=== PATIENT | female | born 1960 | race Caucasian/White ===

== ENCOUNTER 2024-03-28 10:27 | Inpatient (IN) | payer OTHER ==
[~2024-03-28] VITALS: Ht 165.1 cm; Wt 38.6 kg
[~2024-03-28 10:27] MED LIST: FLUC150T PO
[2024-03-28 11:52] LABS: BASOPHILS % (AUTO) 0.1 % (0-1); EOSINOPHILS % (AUTO) 0 % (0-6); HEMATOCRIT 48.9 % (35.0-45.0); HEMOGLOBIN 16.2 g/dl (12.0-16.0); LYMPHOCYTES # (AUTO) 0.8 X10'3 (1.1-4.8); LYMPHOCYTES % (AUTO) 3.7 % (21-51); MEAN CORPUSCULAR HEMOGLOBIN 29.1 PG (27.0-31.0); MEAN CORPUSCULAR HGB CONC 33.2 g/dL (33.0-36.5); MEAN CORPUSCULAR VOLUME 87.9 FL (78-98); MEAN PLATELET VOLUME 8.5 FL (7.4-10.4); MONOCYTES # (AUTO) 1.1 X10'3 (0-0.9); MONOCYTES % (AUTO) 5.2 % (2-12); NEUTROPHILS # (AUTO) 19.9 X10'3 (1.8-7.7); PLATELET COUNT 387 X10'3 (140-440); RED BLOOD COUNT 5.56 X10'6 (4.20-5.60); RED CELL DISTRIBUTION WIDTH 13.8 % (11.5-14.5); WHITE BLOOD COUNT 21.9 X10'3 (4.5-11.0)
[2024-03-28 12:13] LABS: ANION GAP 28 (8-16); BLOOD UREA NITROGEN 29 MG/DL (7-18); BUN/CREATININE RATIO 16.5 (10.0-20.0); CALCIUM 10.2 MG/DL (8.5-10.1); CHLORIDE 91 MMOL/L (99-107); CREATININE 1.76 MG/DL (0.40-0.90); POTASSIUM 4.8 MMOL/L (3.5-5.1); PRO BRAIN NATRIURETIC PEPTIDE 254 PG/ML (0-125); SODIUM 131 MMOL/L (135-145); eCRCL 30 ML/MIN; eGFR 29 ML/MIN
[2024-03-28 12:16] LABS: GLUCOSE 457 MG/DL (70-104)
[2024-03-28 12:17] LABS: TOTAL CARBON DIOXIDE 12.2 MMOL/L (24-32)
[2024-03-28] MEDS: magnesium 2GM in 50ml NS 50 ML IV ONE (12:35)
[2024-03-28] MEDS ORDERED: normal saline 1000ML IV soln IVB ONE (12:35)
[2024-03-28 13:19] LABS: MAGNESIUM 2.6 MG/DL (1.5-2.4)
[2024-03-28] MEDS: ondansetron/PF 4mg/2ml inj IV PRN (13:34)
[2024-03-28] MEDS: morphine 4 MG/ML inj SYRINge IV ONE (13:35)
[2024-03-28 13:40] LABS: ACETONE LARGE (NEGATIVE)
[2024-03-28] MEDS: Insulin Reg/NS 100units/100mL 100 ML IV SCH (13:52)
[2024-03-28] MEDS: ringers solution, lactated 1000ml IV soln IV ONE (13:52)
[2024-03-28 14:01] LABS: BILIRUBIN,URINE MODERATE (Neg); CLARITY,URINE SLIGHTLY CLOUDY (Clear); COLOR,URINE STRAW (Yellow); GLUCOSE, URINE >=1000 mg/dl (Neg); KETONES,URINE >=80 mg/dl (Neg); LEUKOCYTE ESTERASE ,URINE NEGATIVE (Neg); NITRITES, URINE NEGATIVE (Neg); OCCULT BLOOD,URINE MODERATE (Neg); PH,URINE 5.5 (4.8-8.0); PROTEIN,URINE TRACE mg/dl (Neg); UROBILINOGEN,URINE 0.2 E.U/dL (0.2-1.0)
[2024-03-28 14:06] LABS: UA COLLECTION TYPE FOLEY CATH
[2024-03-28 14:10] LABS: SQUAMOUS EPITHELIAL CELL,UR MODERATE /LPF (FEW)
[2024-03-28 14:11] LABS: WBC,URINE 30-50 /HPF (0-4)
[2024-03-28 14:12] LABS: BACTERIA,URINE 2+ /HPF (Neg); CAL OXALATE CRYSTALS FEW /HPF (NEGATIVE); RBC,URINE 0-2 /HPF (0-2)
[2024-03-28 14:20] LABS: ABG BASE EXCESS -14.8 mmol/L (-2.0-2.0); ABG HCO3 9.5 mmol/L (22.0-26.0); ABG OXYGEN SATURATION 97.6 % (94-97); ABG PCO2 (T) 20.3 mmHg (32.0-45.0); ABG PH (T) 7.285 (7.350-7.450); ABG PO2 (T) 101.6 mmHg (75.0-100.0); ALLEN'S TEST POSITIVE; FCOHb 0.1 % (0.0-3.9); FHHb 2.4 % (0.0-5.0); FMetHb 0.4 % (0.0-1.5); FO2Hb 97.1 % (94-97); MODE ROOM AIR; PATIENT TEMPERATURE 36.8; TOTAL HEMOGLOBIN 15.6 G/dl (12.0-16.0)
[2024-03-28] MEDS: morphine 2 MG/ML inj. syringe IV PRN (14:33)
[2024-03-28] MEDS: normal saline 1000ml 1,000 ML IV SCH ×3 (14:35→15:35)
[2024-03-28] MEDS ORDERED: insulin regular, human U-100 3ml vial - multi-dose IV PRN ×2 (14:35→14:55)
[2024-03-28] MEDS ORDERED: sodium phosphate inj. 30 MMOL in dextrose 5%-water 250 ML IV PRN (14:35)
[2024-03-28] MEDS ORDERED: potassium Cl 20 mEq SR tablet PO PRN ×2 (14:35)
[2024-03-28] MEDS ORDERED: sodium bicarbonate (8.4%) inj. 100 MEQ in dextrose 5% water 500ml 500 ML IV PRN (14:35)
[2024-03-28] MEDS ORDERED: Insulin Reg/NS 100units/100mL 100 ML IV SCH (14:35)
[2024-03-28] MEDS: PERFLUTREN PROTEIN-A MICROSPHR (Optison) 0.22 MG/ML 3ML VIAL IV ONE (14:35)
[2024-03-28] MEDS ORDERED: potassium Cl 40MEQ/1/2NS 520ml 520 ML IV PRN (14:35)
[2024-03-28] MEDS ORDERED: potassium CL 20mEq in D5-1/2NS 1,000 ML IV PRN (14:35)
[2024-03-28] MEDS ORDERED: Neutra Phos packet PO PRN (14:35)
[2024-03-28] MEDS ORDERED: sodium phosphate inj. 15 MMOL in dextrose 5%-water 250 ML IV PRN (14:35)
[2024-03-28] MEDS ORDERED: sodium bicarbonate (8.4%) inj. 50 MEQ in dextrose 5% water 500ml 250 ML IV PRN (14:35)
[2024-03-28 15:24] LABS: BASOPHILS % (AUTO) 0.2 % (0-1); EOSINOPHILS % (AUTO) 0 % (0-6); HEMATOCRIT 45.1 % (35.0-45.0); HEMOGLOBIN 14.8 g/dl (12.0-16.0); LYMPHOCYTES # (AUTO) 0.9 X10'3 (1.1-4.8); MEAN CORPUSCULAR HEMOGLOBIN 28.8 PG (27.0-31.0); MEAN CORPUSCULAR HGB CONC 32.9 g/dL (33.0-36.5); MEAN CORPUSCULAR VOLUME 87.4 FL (78-98); MEAN PLATELET VOLUME 8.2 FL (7.4-10.4); MONOCYTES # (AUTO) 0.7 X10'3 (0-0.9); MONOCYTES % (AUTO) 3.2 % (2-12); NEUTROPHILS # (AUTO) 19.8 X10'3 (1.8-7.7); NEUTROPHILS % (AUTO) 92.6 % (42-75); PLATELET COUNT 372 X10'3 (140-440); RED BLOOD COUNT 5.15 X10'6 (4.20-5.60); RED CELL DISTRIBUTION WIDTH 13.5 % (11.5-14.5); WHITE BLOOD COUNT 21.4 X10'3 (4.5-11.0)
[2024-03-28 15:34] LABS: ALBUMIN 2.7 G/DL (3.4-5.0); ANION GAP 22 (8-16); BLOOD UREA NITROGEN 30 MG/DL (7-18); CALCIUM 9.7 MG/DL (8.5-10.1); CHLORIDE 96 MMOL/L (99-107); CREATININE 1.67 MG/DL (0.40-0.90); GLUCOSE 370 MG/DL (70-104); PHOSPHORUS 3.1 MG/DL (2.3-4.5); POTASSIUM 4.1 MMOL/L (3.5-5.1); SODIUM 133 MMOL/L (135-145); TOTAL CARBON DIOXIDE 15.5 MMOL/L (24-32); eCRCL 32 ML/MIN; eGFR 31 ML/MIN
[2024-03-28] MEDS: CALCIUM GLUC 1gm/50ml NACL,iso 50 ML IV ONE ×2 (15:35→16:25)
[2024-03-28 16:51] LABS: ALBUMIN 2.4 G/DL (3.4-5.0); ANION GAP 16 (8-16); BLOOD UREA NITROGEN 27 MG/DL (7-18); BUN/CREATININE RATIO 18.2 (10.0-20.0); CHLORIDE 100 MMOL/L (99-107); CREATININE 1.48 MG/DL (0.40-0.90); GLUCOSE 261 MG/DL (70-104); POTASSIUM 3.8 MMOL/L (3.5-5.1); SODIUM 136 MMOL/L (135-145); TOTAL CARBON DIOXIDE 20.1 MMOL/L (24-32); eCRCL 36 ML/MIN; eGFR 36 ML/MIN
[2024-03-28] MEDS: potassium CL 20mEq in D5-1/2NS 1,000 ML IV PRN (17:30)
[2024-03-28 18:58] LABS: ANION GAP 15 (8-16); CHLORIDE 103 MMOL/L (99-107); POTASSIUM 4.4 MMOL/L (3.5-5.1); SODIUM 137 MMOL/L (135-145); TOTAL CARBON DIOXIDE 19.1 MMOL/L (24-32)
[2024-03-28 19:12] LABS: ALBUMIN 2.7 G/DL (3.4-5.0); BLOOD UREA NITROGEN 25 MG/DL (7-18); BUN/CREATININE RATIO 16.7 (10.0-20.0); CALCIUM 9.9 MG/DL (8.5-10.1); GLUCOSE 208 MG/DL (70-104); MAGNESIUM 2.1 MG/DL (1.5-2.4); eCRCL 35 ML/MIN; eGFR 35 ML/MIN
[2024-03-28] MEDS: potassium phosphate inj 15 MMOL in normal saline 250ml IV soln 250 ML IV ONE (19:12)
[2024-03-28] MEDS: HYDROcodone/acetaminophen 5mg/325mg tablet PO PRN (19:45)
[2024-03-28] MEDS: K and/or MAG REPLACEMENT MC SCH (20:00)
[2024-03-28 20:04] LABS: ALKALINE PHOSPHATASE 308 IU/L (46-116)
[2024-03-28 21:05] VITALS: BP 102/66; PULSE 110; RESP 18; TEMP 97.7; O2SAT 94
[2024-03-28] MEDS: heparin, porcine 5000 units/ml vial SQ SCH (21:56)
[2024-03-29] VITALS (14 sets, daily range): BP systolic 96–121; BP diastolic 57–71; PULSE 76–103; RESP 12–19; TEMP 96.9–98.4; O2SAT 90–97
[2024-03-29 05:47] LABS: BASOPHILS # (AUTO) 0.1 X10'3 (0-0.2); BASOPHILS % (AUTO) 0.7 % (0-1); EOSINOPHILS % (AUTO) 0.2 % (0-6); HEMATOCRIT 40.9 % (35.0-45.0); HEMOGLOBIN 13.6 g/dl (12.0-16.0); LYMPHOCYTES % (AUTO) 5.8 % (21-51); MEAN CORPUSCULAR HEMOGLOBIN 28.4 PG (27.0-31.0); MEAN CORPUSCULAR HGB CONC 33.2 g/dL (33.0-36.5); MEAN CORPUSCULAR VOLUME 85.6 FL (78-98); MEAN PLATELET VOLUME 8.2 FL (7.4-10.4); MONOCYTES # (AUTO) 1.3 X10'3 (0-0.9); MONOCYTES % (AUTO) 7.6 % (2-12); NEUTROPHILS # (AUTO) 14.6 X10'3 (1.8-7.7); NEUTROPHILS % (AUTO) 85.7 % (42-75); PLATELET COUNT 311 X10'3 (140-440); RED BLOOD COUNT 4.78 X10'6 (4.20-5.60); RED CELL DISTRIBUTION WIDTH 13.6 % (11.5-14.5)
[2024-03-29 06:07] LABS: ALANINE AMINOTRANSFERASE 11 U/L (12-78); ALBUMIN 2.2 G/DL (3.4-5.0); ALBUMIN/GLOBULIN RATIO 0.5 (1.1-1.5); ALKALINE PHOSPHATASE 236 IU/L (46-116); ANION GAP 5 (8-16); ASPARTATE AMINO TRANSFERASE 10 U/L (10-37); BILIRUBIN,TOTAL 0.5 MG/DL (0.1-1.0); BLOOD UREA NITROGEN 14 MG/DL (7-18); BUN/CREATININE RATIO 11.9 (10.0-20.0); CALCIUM 9.1 MG/DL (8.5-10.1); CHLORIDE 105 MMOL/L (99-107); CREATININE 1.18 MG/DL (0.40-0.90); GLUCOSE 142 MG/DL (70-104); PHOSPHORUS 1.3 MG/DL (2.3-4.5); POTASSIUM 3.5 MMOL/L (3.5-5.1); SODIUM 138 MMOL/L (135-145); TOTAL CARBON DIOXIDE 28.4 MMOL/L (24-32); TOTAL PROTEIN 6.6 G/DL (6.4-8.2); eCRCL 45 ML/MIN; eGFR 47 ML/MIN
[2024-03-29] MEDS ORDERED: dextrose 50%-water 50ml dispensing syringe IV PRN ×2 (06:20)
[2024-03-29] MEDS ORDERED: glucagon, human recombinant 1mg kit SUBCUT PRN (06:20)
[2024-03-29] MEDS ORDERED: DEXTROSE 15 GM of carb/4 tabs (each vial/BOTTLE has 4 tablets) PO PRN ×2 (06:20)
[2024-03-29 07:16] LABS: HEMOGLOBIN A1C > 12.0 % (4.5-6.2)
[2024-03-29] MEDS: CefTRIAXone/D5W-Rocephin 1gm 50 ML IV SCH (08:00)
[2024-03-29] MEDS: INSULIN LISPRO 100 UNIT/ML INSULN.PEN MULTI-DOSE SQ SCH ×2 (09:00→18:15)
[2024-03-29] MEDS ORDERED: labetalol 20mg/4ml (5mg/ml) syringe IV PRN (09:25)
[2024-03-29] MEDS ORDERED: proCHLORperazine 10 MG/2 ml inj IV PRN (09:25)
[2024-03-29] MEDS ORDERED: enalaprilat dihydrate 2.5mg/2ml vial IV PRN (09:25)
[2024-03-29] MEDS ORDERED: morphine 2 MG/ML inj. syringe IV PRN (09:25)
[2024-03-29] MEDS ORDERED: morphine 4 MG/ML inj SYRINge IV PRN (09:25)
[2024-03-29] MEDS ORDERED: meperidine/PF 25mg/ml syringe IV PRN ×2 (09:25)
[2024-03-29] MEDS ORDERED: ondansetron/PF 4mg/2ml inj IV PRN (09:25)
[2024-03-29 12:18] LABS: OSMOLALITY 303 MOSM/K (280-300)
[2024-03-29] MEDS ORDERED: sevoflurane 250ml liquid IH ONE (13:15)
[2024-03-29] MEDS ORDERED: fentaNYL/PF 50MCG/1 ML 2ML syringe ONE (13:23)
[2024-03-29] MEDS ORDERED: midazolam 1 mg/ML 2ml injection ONE (13:24)
[2024-03-29] MEDS ORDERED: propofol inj 20 ML IV ONE (13:45)
[2024-03-29] MEDS ORDERED: dexamethasone sod phosphate 4mg/ml inj. ONE (13:45)
[2024-03-29] MEDS: BUPIVAcaine/PF 5 MG/ML 10ML VIAL SQ ONE (13:49)
[2024-03-29] MEDS: meperidine/PF 25mg/ml syringe IV PRN (14:34)
[2024-03-29] MEDS: BUPIVAcaine/PF 2.5mg/ml (0.25%) 10ml vial ONE (14:38)
[2024-03-29] MEDS: ringers solution, lacted 1,000 ML IV SCH (14:39)
[2024-03-29] MEDS ORDERED: INSULIN LISPRO 100 UNIT/ML INSULN.PEN MULTI-DOSE SQ SCH (21:00)
[2024-03-30] VITALS (7 sets, daily range): BP systolic 113–134; BP diastolic 66–77; PULSE 65–100; RESP 14–18; TEMP 97.7–98.6; O2SAT 93–98
[2024-03-30 07:55] LABS: BASOPHILS % (AUTO) 0.1 % (0-1); EOSINOPHILS % (AUTO) 0.1 % (0-6); HEMATOCRIT 36.8 % (35.0-45.0); HEMOGLOBIN 12.2 g/dl (12.0-16.0); LYMPHOCYTES # (AUTO) 0.9 X10'3 (1.1-4.8); LYMPHOCYTES % (AUTO) 6.4 % (21-51); MEAN CORPUSCULAR HEMOGLOBIN 28.6 PG (27.0-31.0); MEAN CORPUSCULAR HGB CONC 33.1 g/dL (33.0-36.5); MEAN CORPUSCULAR VOLUME 86.4 FL (78-98); MEAN PLATELET VOLUME 8.4 FL (7.4-10.4); MONOCYTES # (AUTO) 0.7 X10'3 (0-0.9); NEUTROPHILS # (AUTO) 11.9 X10'3 (1.8-7.7); NEUTROPHILS % (AUTO) 88.4 % (42-75); PLATELET COUNT 264 X10'3 (140-440); RED BLOOD COUNT 4.25 X10'6 (4.20-5.60); RED CELL DISTRIBUTION WIDTH 13.5 % (11.5-14.5); WHITE BLOOD COUNT 13.4 X10'3 (4.5-11.0)
[2024-03-30 08:26] LABS: ALANINE AMINOTRANSFERASE 11 U/L (12-78); ALBUMIN 1.8 G/DL (3.4-5.0); ALBUMIN/GLOBULIN RATIO 0.5 (1.1-1.5); ALKALINE PHOSPHATASE 195 IU/L (46-116); ANION GAP 10 (8-16); ASPARTATE AMINO TRANSFERASE 14 U/L (10-37); BILIRUBIN,TOTAL 0.5 MG/DL (0.1-1.0); BLOOD UREA NITROGEN 8 MG/DL (7-18); BUN/CREATININE RATIO 11.1 (10.0-20.0); CALCIUM 8.6 MG/DL (8.5-10.1); CHLORIDE 106 MMOL/L (99-107); CREATININE 0.72 MG/DL (0.40-0.90); GLUCOSE 251 MG/DL (70-104); POTASSIUM 4.3 MMOL/L (3.5-5.1); SODIUM 139 MMOL/L (135-145); TOTAL CARBON DIOXIDE 23.5 MMOL/L (24-32); TOTAL PROTEIN 5.8 G/DL (6.4-8.2); eCRCL 50 ML/MIN; eGFR 82 ML/MIN
[2024-03-30] MEDS: insulin glargine (Lantus) pen - multi-dose SQ SCH (21:48)
[2024-03-31 02:00] VITALS: BP 140/79; PULSE 97; RESP 19; TEMP 98.6; O2SAT 92
[2024-03-31 06:00] VITALS: BP 146/76; PULSE 108; RESP 20; TEMP 98.3; O2SAT 92
[2024-03-31 06:37] LABS: BASOPHILS % (AUTO) 0.4 % (0-1); EOSINOPHILS # (AUTO) 0.1 X10'3 (0-0.9); EOSINOPHILS % (AUTO) 0.4 % (0-6); HEMATOCRIT 39.7 % (35.0-45.0); HEMOGLOBIN 13.2 g/dl (12.0-16.0); LYMPHOCYTES # (AUTO) 1.2 X10'3 (1.1-4.8); LYMPHOCYTES % (AUTO) 10.5 % (21-51); MEAN CORPUSCULAR HEMOGLOBIN 28.5 PG (27.0-31.0); MEAN CORPUSCULAR HGB CONC 33.3 g/dL (33.0-36.5); MEAN CORPUSCULAR VOLUME 85.5 FL (78-98); MEAN PLATELET VOLUME 8.2 FL (7.4-10.4); MONOCYTES % (AUTO) 8.5 % (2-12); NEUTROPHILS # (AUTO) 9.3 X10'3 (1.8-7.7); NEUTROPHILS % (AUTO) 80.2 % (42-75); PLATELET COUNT 250 X10'3 (140-440); RED BLOOD COUNT 4.64 X10'6 (4.20-5.60); RED CELL DISTRIBUTION WIDTH 13.3 % (11.5-14.5); WHITE BLOOD COUNT 11.6 X10'3 (4.5-11.0)
[2024-03-31 06:59] LABS: ALANINE AMINOTRANSFERASE 13 U/L (12-78); ALBUMIN 1.9 G/DL (3.4-5.0); ALBUMIN/GLOBULIN RATIO 0.5 (1.1-1.5); ALKALINE PHOSPHATASE 216 IU/L (46-116); ANION GAP 9 (8-16); ASPARTATE AMINO TRANSFERASE 21 U/L (10-37); BILIRUBIN,TOTAL 0.7 MG/DL (0.1-1.0); BLOOD UREA NITROGEN 5 MG/DL (7-18); BUN/CREATININE RATIO 8.2 (10.0-20.0); CALCIUM 8.5 MG/DL (8.5-10.1); CHLORIDE 104 MMOL/L (99-107); CREATININE 0.61 MG/DL (0.40-0.90); GLUCOSE 238 MG/DL (70-104); POTASSIUM 3.7 MMOL/L (3.5-5.1); SODIUM 140 MMOL/L (135-145); TOTAL CARBON DIOXIDE 27.4 MMOL/L (24-32); TOTAL PROTEIN 6.1 G/DL (6.4-8.2); eCRCL 59 ML/MIN; eGFR > 90 ML/MIN
[2024-03-31 08:20] LABS: CHOLESTEROL 165 MG/DL (0-200); HDL CHOLESTEROL 33 MG/DL (35-60); LDL CHOLESTEROL 96 MG/DL (50-100); TRIGLYCERIDES 171 MG/DL (20-135)
[2024-03-31] MEDS: INSULIN LISPRO 100 UNIT/ML INSULN.PEN MULTI-DOSE SQ SCH (09:00)
[2024-03-31] MEDS: atorvastatin 20mg tablet PO SCH (10:47)
[2024-03-31 11:00] VITALS: BP 118/73; PULSE 103; RESP 18; TEMP 98.9; O2SAT 92
[2024-03-31 15:00] VITALS: BP 138/74; PULSE 91; RESP 20; TEMP 98.4; O2SAT 94
[2024-03-31 18:00] VITALS: BP 115/63; PULSE 78; RESP 20; TEMP 97.4; O2SAT 95
[2024-03-31 20:00] VITALS: RESP 20; O2SAT 95
[2024-03-31] MEDS: insulin glargine (Lantus) pen - multi-dose SQ SCH (21:46)
[2024-04-01 02:00] VITALS: BP_SYST 119; BP_SYST 134; BP_DIAS 65; BP_DIAS 75; PULSE 73; PULSE 75; RESP 19; RESP 20; TEMP 97.4; O2SAT 91; O2SAT 94
[2024-04-01 08:00] VITALS: RESP 20; O2SAT 95
[2024-04-01] MEDS ORDERED: INSU100I8 SQ (11:23)
[2024-04-01] MEDS ORDERED: LACT1CAP60 PO (11:23)
[2024-04-01] MEDS ORDERED: LANTUS SQ (11:23)
[2024-04-01] MEDS ORDERED: CEFD300C3 PO (11:23)
[2024-04-01] MEDS ORDERED: ASPI-1 PO (11:23)
[2024-04-01] MEDS ORDERED: ATOR20TA66 PO (11:23)
[2024-04-01] MEDS ORDERED: ACET-75 PO (18:19)
== END 2024-04-01 15:10 | disposition home or self-care (01) | DRG 480 ==
LOC: ER 10:28 → ED HOLD 14:53 → PCU 3S 20:41
PROVIDERS: ADMIT Family Medicine; ATTEND Family Medicine
PROC: 0QH634Z Insertion of Internal Fixation Device into Right Upper Femur, Percutaneous Approach (ICD-10-PCS; principal; 2024-03-29 13:15)
DX: S72.091A Other fracture of head and neck of right femur, initial encounter for closed fracture (principal); E11.10 Type 2 diabetes mellitus with ketoacidosis without coma; N39.0 Urinary tract infection, site not specified; N17.9 Acute kidney failure, unspecified; E83.41 Hypermagnesemia; Z20.822 Contact with and (suspected) exposure to COVID-19; W18.39XA Other fall on same level, initial encounter; D72.829 Elevated white blood cell count, unspecified; Z74.01 Bed confinement status; Z88.0 Allergy status to penicillin; Z83.3 Family history of diabetes mellitus; Y93.89 Activity, other specified; Y92.89 Other specified places as the place of occurrence of the external cause; Y99.8 Other external cause status
CPT/HCPCS: 36415; 36600; 71045; 73502; 76000; 80048; 80053; 80061; 81001; 82009; 82803; 82948; 83036; 83605; 83735; 83880; 83930; 84075; 84100; 84145; 84484; 85018; 85025; 86885; 86900; 86901; 87040; 87077; 87081; 87088; 87186; 87502; 87503; 87811; 93005; 93306; 96374; 96375; 97116; 97161; 97530; 99285; A4615; A4618; A6258; A7000; C1713; C1758; G0378; J0610; J0665; J0696; J1100; J1644; J1815; J2175; J2250; J2270; J2405; J2704; J3010; J3480; J3490; J7030; J7040; J7120